=== PATIENT | female | born 1980 | race Caucasian/White ===

== ENCOUNTER 2017-06-09 22:45 | Emergency (ER) | payer OTHER ==
[~2017-06-09] VITALS: Ht 170.2 cm; Wt 95.3 kg
[~2017-06-09 22:45] MED LIST: FLAGYL500 MG PO
[2017-06-09] MEDS ORDERED: NORCO 5-325 TA1 EACH PO (23:40)
[2017-06-10 00:06] VITALS: BP 105/55
== END 2017-06-10 00:10 | disposition home or self-care (01) ==
LOC: M.ERS 22:45
DX: S83.8X2A Sprain of other specified parts of left knee, initial encounter (principal); E03.9 Hypothyroidism, unspecified; Z90.711 Acquired absence of uterus with remaining cervical stump; F17.210 Nicotine dependence, cigarettes, uncomplicated; W18.39XA Other fall on same level, initial encounter; Y93.89 Activity, other specified; Y92.89 Other specified places as the place of occurrence of the external cause; Y99.8 Other external cause status

== ENCOUNTER 2018-09-05 19:11 | Inpatient (IN) | payer OTHER ==
[~2018-09-05] VITALS: Ht 170.2 cm; Wt 90.7 kg
[~2018-09-05 19:11] MED LIST changes: +NORCO 5-325 TA1 EACH PO
[2018-09-05 19:25] VITALS: BP 166/67
[2018-09-05] MEDS ORDERED: PREDNISONE 10 M10 MG PO (19:35)
[2018-09-05] MEDS ORDERED: CEFDINIR300 MG PO (19:37)
[2018-09-05] MEDS ORDERED: BENZONATATE200 MG PO (19:38)
[2018-09-05] MEDS ORDERED: VENTOLIN HFA 1818 GM INH (19:40)
--- NOTE | 2018-09-05 19:41 | NUR ---
PT PRESENTS TO ED WITH COUGH AND CHEST CONGESTION SINCE August.
[2018-09-05 20:05] LABS: ABSOLUTE BASOPHILS 0.1 thou/uL (0.0-0.2); ABSOLUTE LYMPHOCYTES 1.6 thou/uL (0.8-5.3); ABSOLUTE MONOCYTES 0.9 thou/uL (0.0-1.2); ABSOLUTE NEUTROPHILS 9.6 thou/uL (1.6-8.1); BASOPHILS 0.7 %; EOSINOPHILS 0.3 %; HEMATOCRIT 44.4 % (37.0-47.0); HEMOGLOBIN 14.7 gm/dL (12.0-15.0); LYMPHOCYTES 13.3 %; MCH 30.2 pg (26.0-34.0); MCHC 33.1 g/dL (28.0-37.0); MCV 91.1 fL (80.0-100.0); MONOCYTES 7.5 %; MPV 9.8 fl. (7.2-11.1); NUCLEATED RBCS 0 /100WBC; PLATELET COUNT* 211 thou/uL (150-400); POLYS 78.2 %; RBC 4.87 mil/uL (4.20-5.00); RDW-CV 14.3 % (10.5-14.5); WBC 12.3 thou/uL (4.0-11.0)
[2018-09-05 20:14] LABS: ANION GAP 12 mmol/L (7-16); BUN 11 mg/dL (7-18); CALCIUM 9.1 mg/dL (8.5-10.1); CHLORIDE 106 mmol/L (98-107); CO2 26 mmol/L (21-32); CREATININE 0.7 mg/dL (0.6-1.3); GLUCOSE 115 mg/dL (70-99); POTASSIUM 3.8 mmol/L (3.5-5.1); SODIUM 144 mmol/L (136-145)
[2018-09-05 20:18] LABS: INR 0.9; PROTIME 9.6 Seconds (9.20-11.50)
[2018-09-05 20:25] LABS: ALBUMIN 3.7 g/dL (3.4-5.0); ALKALINE PHOSPHATASE 56 U/L (46-116); LIPASE 114 U/L (73-393); NT-PRO BRAIN NAT PEPTIDE 145 pg/mL (<300); SGOT 10 U/L (15-37); SGPT 19 U/L (30-65); TOTAL BILIRUBIN 0.2 mg/dL (<0.1-1.0); TOTAL PROTEIN 7.6 g/dL (6.4-8.2); TROPONIN-I LEVEL <0.06 ng/mL (<0.06)
--- NOTE | 2018-09-05 22:15 | NUR ---
REPORT GIVEN TO ROXANN BAGLEY. PT BEING ADMITTED TO ROOM 116
[2018-09-05 22:16] VITALS: BP 137/73
[2018-09-05 22:30] VITALS: BP 116/61
--- NOTE | 2018-09-06 04:57 | NUR ---
PT ALERT AND ORIENTED. ADMITTED TO ROOM 116 FROM ER. VSS ON RA. ADMISSION HX AND ASSESSMENTED DOCUMENTED. LAC IV-SL. PT ORIENTED TO ROOM AND CALL LIGHT. CALL LIGHT WITHIN REACH. HOURLY ROUNDINGS MADE. WILL CONTINUE TO MONITOR.
[2018-09-06 07:30] VITALS: BP 113/53
--- NOTE | 2018-09-06 09:18 | EKG ---
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
--- NOTE | 2018-09-06 12:01 | NUR ---
PT.EATING LUNCH. SHE SAID SHE LIVES WITH HER [place] CHILDREN. HER MOM IS SUPPORIVE. SHE WORKS AT A [employer] BUT DOES NOT HAVE INSURANCE. SHE IS INDEPENDENT. NO USE OF DME OR HX OF HH. GAVE AND DISCUSSED PACKET FOR THE UNINSURED, ALONG WITH GOOD RX DRUG CARD. PLAN IS FOR HER TO RETURN HOME AT DISCHARGE WITHOUT NEEDS.
--- NOTE | 2018-09-06 13:52 | 2DMMODE ---
[place] [address] 2 D/M-MODE ECHOCARDIOGRAM Name: ALPHONSO HENNESSY Room: [address] IN [facility]#: [id number] Admission: 09/05/18 Attend Phys: Ashia Hall MD Discharge: Date of : 80 Date of Service: 09/06/18 1351 Report #: [id number] THIS REPORT FOR: //name// APPROVED REPORT Study performed: 09/06/2018 11:05:05 EXAM: Comprehensive 2D, Doppler, and color-flow Echocardiogram Patient Location: In-Patient Room #: [facility] Status: routine BSA: 2.02 HR: 81 bpm BP: 113/53 mmHg Rhythm: NSR Other Information Study Quality: Good Indications Dyspnea 2D Dimensions IVSd: 11.58 (7-11mm) LVOT Diam: 22.31 (18-24mm) LVDd: 50.47 mm PWd: 10.44 (7-11mm) Ascending Ao: 30.66 (22-36mm) LVDs: 33.11 (25-40mm) Aortic Root: 33.14 mm Volumes Left Atrial Volume (Systole) LA ESV Index: 32.30 mL/m2 Aortic Valve AoV Peak Ravinder.: 1.44 m/s AO Peak Gr.: 8.25 mmHg LVOT Max P.64 mmHg AO Mean Gr.: 5.01 mmHg LVOT Mean P.17 mmHg LVOT Max V: 0.95 m/s AO V2 VTI: 27.79 cm LVOT Mean V: 0.70 m/s CHRISTA (VTI): 2.68 cm2 LVOT V1 VTI: 19.06 cm Mitral Valve E/A Ratio: 1.09 MV Decel. Time: 276.89 ms MV E Max Ravinder.: 0.68 m/[place] [address] 2 D/M-MODE ECHOCARDIOGRAM Name: ALPHONSO HENNESSY Room: [address] IN [facility].#: [id number] Admission: 09/05/18 Attend Phys: Ashia Hall MD Discharge: Date of : 80 Date of Service: 09/06/18 1351 Report #: [id number] MV PHT: 80.30 ms MVA (PHT): 2.74 cm2 TDI E/Lateral E': 4.86 E/Medial E': 5.67 Medial E' Ravinder.: 0.12 m/s Lateral E' Ravinder.: 0.14 m/s Pulmonary Valve PV Peak Ravinder.: 0.90 m/s PV Peak Gr.: 3.27 mmHg Left Ventricle The left ventricle is normal size. There is normal LV segmental wall motion. There is normal left ventricular wall thickness. Left ventricular systolic function is normal. The left ventricular ejection fraction is within the normal range. LVEF is 55-60%. The left ventricular diastolic function is normal. Right Ventricle The right ventricle is normal size. The right ventricular systolic function is normal. Atria Left atrium is mildly dilated. The atrial septum is aneurysmal. The right atrium size is normal. Aortic Valve The aortic valve is normal in structure. No aortic regurgitation is present. There is no aortic valvular stenosis. Mitral Valve The mitral valve is normal in structure. There is no mitral valve regurgitation noted. No evidence of mitral valve stenosis. Tricuspid Valve The tricuspid valve is normal in structure. Unable to assess PA pressure. Trace tricuspid regurgitation. Pulmonic Valve The pulmonary valve is normal in structure. There is no pulmonic valvular regurgitation. Great Vessels The aortic root is normal in size. IVC is normal in size and collapses >50% [place] [address] 2 D/M-MODE ECHOCARDIOGRAM Name: ALPHONSO HENNESSY Charleen Room: [address] IN [facility]#: [id number] Admission: 09/05/18 Attend Phys: Ashia Hall MD Discharge: Date of : 80 Date of Service: 09/06/18 1351 Report #: [id number] Pericardium There is no pericardial effusion. <Conclusion> LVEF is 55-60%. Left atrium is mildly dilated. <ELECTRONICALLY SIGNED> By: Edward Lopez MD, FACC 09/06/18 1351 1351 135 Edward Lopez MD, FACC /INF
[2018-09-06 16:00] VITALS: BP 118/59
--- NOTE | 2018-09-06 17:27 | NUR ---
pt remained alert and oriented. pt resting in room. pt left unit to go smoke. pt educated on staying on unit unless escorted. pt agreed to comply. nicotine patch in place. pt notified needing a stool sample. fall risk precautions in place. hourly rounding completed. will continue to monitor.
[2018-09-06 18:26] LABS: URINE BILIRUBIN NEGATIVE (Negative); URINE BLOOD 2+ (Negative); URINE CLARITY CLEAR; URINE COLOR YELLOW; URINE GLUCOSE-RANDOM NEGATIVE (Negative); URINE KETONES NEGATIVE (Negative); URINE NITRITE-REFLEX NEGATIVE (Negative); URINE PROTEIN NEGATIVE (Negative); URINE UROBILINOGEN 0.2 E.U./dl (0.2-1.0)
[2018-09-06 18:27] LABS: URINE LEUKOCYTES-REFLEX 3+ (Negative)
[2018-09-06 18:33] LABS: AMP/METHAMP Negative (Negative); BARBITURATES Negative (Negative); BENZODIAZEPINES Negative (Negative); COCAINE Negative (Negative); METHADONE Negative (Negative); OPIATES Negative (Negative); PCP Negative (Negative); THC Negative (Negative)
[2018-09-06 18:43] LABS: MUCUS None Seen strn/LPF (None Seen); SQUAMOUS >10 Many /LPF (0-3)
[2018-09-06 18:44] LABS: URINE WBC-REFLEX 6-15 Few /HPF (0-5)
[2018-09-06 18:45] LABS: BACTERIA-REFLEX 1-9 Few /HPF (None Seen); CASTS None Seen /LPF (None Seen); CRYSTALS None Seen /LPF (None Seen); URINE RBC 3-10 Few /HPF (0-2)
[2018-09-06 20:45] VITALS: BP 121/59
[2018-09-07 04:50] LABS: ABSOLUTE MONOCYTES 0.7 thou/uL (0.0-1.2); ABSOLUTE NEUTROPHILS 14.2 thou/uL (1.6-8.1); BASOPHILS 0.1 %; EOSINOPHILS 0.1 %; HEMOGLOBIN 13.1 gm/dL (12.0-15.0); LYMPHOCYTES 6.1 %; MCH 29.2 pg (26.0-34.0); MCHC 31.9 g/dL (28.0-37.0); MCV 91.6 fL (80.0-100.0); MONOCYTES 4.2 %; MPV 10.5 fl. (7.2-11.1); NUCLEATED RBCS 0 /100WBC; PLATELET COUNT* 204 thou/uL (150-400); POLYS 89.5 %; RBC 4.47 mil/uL (4.20-5.00); RDW-CV 14.2 % (10.5-14.5); WBC 15.8 thou/uL (4.0-11.0)
--- NOTE | 2018-09-07 04:57 | NUR ---
PATIENT HAS REMAINED ALERT AND ORIENTED X 4 AND RESTING AT INTERVALS ON HOURLY ROUNDS. LOOSE COUGH NOTED AT TIMES. VITAL SIGNS STABLE. MEDS AND RT PER ORDER. ROOM AIR. SHOWERED AT HS AND DID NOTE SOME INCREASE IN SHORTNESS OF AIR WITH THIS ACTIVITY. WANTS TO GO HOME. CONTINUE TO MONITOR.
[2018-09-07 05:03] LABS: CALCIUM 8.9 mg/dL (8.5-10.1); CREATININE 0.7 mg/dL (0.6-1.3); POTASSIUM 3.9 mmol/L (3.5-5.1)
[2018-09-07 08:48] VITALS: BP 124/54
[2018-09-07] MEDS ORDERED: PROTONIX40 M1 PO (09:06)
[2018-09-07] MEDS ORDERED: DIFLUCAN200 MG PO (09:07)
[2018-09-07 09:09] VITALS: BP 124/54
--- NOTE | 2018-09-07 09:21 | NUR ---
PT GIVEN DISCHARGE INFORMATION, CARE NOTES, AND PRESCRIPTIONS. IV REMOVED. PT DENIED ANY FURTHER QUESTIONS OR CONCERNS AT THIS TIME. FALL RISK PRECAUTIONS IN PLACE. HOURLY ROUNDING COMPLETED. PT REMOED WRIST BAND ON OWN AND WENT TO VISIT FAMILY ON SECOND FLOOR. PT HAS OWN VEHICLE ON [place] AND IS CAPABLE OF SAFELY DRIVING HOME.
[2018-09-07 09:22] VITALS: BP 124/54
== END 2018-09-07 09:23 | disposition home or self-care (01) | DRG 202 ==
LOC: M.ERS 19:11 → M.TBA-ER 21:40 → M.ORTHSURG 21:40
PROVIDERS: Emergency Medicine; Internal Medicine; ADMIT Family Medicine
DX: J20.9 Acute bronchitis, unspecified (principal); J18.9 Pneumonia, unspecified organism; R65.10 Systemic inflammatory response syndrome (SIRS) of non-infectious origin without acute organ dysfunction; E03.9 Hypothyroidism, unspecified; F17.210 Nicotine dependence, cigarettes, uncomplicated; Z90.711 Acquired absence of uterus with remaining cervical stump; Z79.899 Other long term (current) drug therapy

== ENCOUNTER 2021-01-28 15:42 | Emergency (ER) | payer BC ==
[~2021-01-28] VITALS: Ht 167.6 cm; Wt 97.5 kg
[~2021-01-28 15:42] MED LIST changes: +BENZONATATE200 MG PO; +CEFDINIR300 MG PO; +DIFLUCAN200 MG PO; +PREDNISONE 10 M10 MG PO; +PROTONIX40 M1 PO; +VENTOLIN HFA 1818 GM INH
[2021-01-28] MEDS ORDERED: LEVO-T75 MCG PO (15:59)
[2021-01-28] MEDS ORDERED: SINGULAIR 10 MG10 MG PO (15:59)
[2021-01-28] MEDS ORDERED: KLOR-CON M2020 MEQ PO (16:00)
[2021-01-28] MEDS ORDERED: GLUCOPHAGE XR750 MG PO (16:00)
[2021-01-28] MEDS ORDERED: MUCINEX1200 MG PO (16:00)
[2021-01-28] MEDS ORDERED: VITAMIN D250 MCG PO (16:00)
[2021-01-28] MEDS ORDERED: PREDNISONE 20 M20 MG PO (16:43)
[2021-01-28] MEDS ORDERED: ALBUTEROL2.5 MG/31 INH (16:43)
[2021-01-28] MEDS ORDERED: IPRAT-ALBUT 0.5-3 ML INH (16:49)
[2021-01-28 16:54] VITALS: BP 133/67
== END 2021-01-28 16:55 | disposition home or self-care (01) ==
LOC: M.ERS 15:42
DX: J45.909 Unspecified asthma, uncomplicated (principal); F17.210 Nicotine dependence, cigarettes, uncomplicated; Z98.51 Tubal ligation status; Z90.89 Acquired absence of other organs; Z90.711 Acquired absence of uterus with remaining cervical stump; Z79.899 Other long term (current) drug therapy